=== PATIENT | male | born 2005 | race Two or more races ===

== ENCOUNTER 2023-09-16 15:19 | Emergency (ER) | payer OTHER ==
[~2023-09-16] VITALS: Ht 172.7 cm; Wt 59.9 kg
[2023-09-16 17:18] LABS: PH,URINE 7.5 (5.0-8.0); URINE APPEARANCE Clear; URINE BILIRRUBIN Negative (NEGATIVE); URINE BLOOD Moderate; URINE COLOR Yellow; URINE GLUCOSE Negative (NEGATIVE); URINE LEUKOCYTE Small; URINE NITRATE Negative; URINE PROTEIN Negative (NEGATIVE); URINE UROBILINOGEN 0.2 E.U./dl
[2023-09-16 17:22] LABS: URINE BACTERIA 28.9 uL (0.0-1933); URINE WBC 124.8 uL (0.0-23.2)
== END 2023-09-16 18:02 | disposition home or self-care (01) ==
LOC: ER 15:20 → EMR PED 15:20
PROVIDERS: Emergency Medicine Pediatric Emergency Medicine
DX: R36.9 Urethral discharge, unspecified (principal); R30.0 Dysuria